=== PATIENT | female | born 1960 | race Caucasian/White ===

== ENCOUNTER → 2017-02-14 | Outpatient (CLI) | payer BC | LOC: CIMAGING 12:37 | DX: N64.4 Mastodynia (principal) | CPT/HCPCS: 76641-PO; G0204 ==

== ENCOUNTER → 2018-02-22 | Outpatient (CLI) | payer BC | LOC: CIMAGING 09:39 | DX: Z12.31 Encounter for screening mammogram for malignant neoplasm of breast (principal); Z80.3 Family history of malignant neoplasm of breast ==

== ENCOUNTER → 2019-02-25 | Outpatient (CLI) | payer BC | LOC: EMCIMAGING 07:47 ==